=== PATIENT | male | born 1985 | race Caucasian/White ===

== ENCOUNTER 2022-05-17 12:13 | Outpatient (CLI) | payer OTHER, SELFPAY | END 2022-05-25 14:34 | disposition home or self-care (01) | LOC: PHYS 12:14 | DX: R20.2 Paresthesia of skin (principal) | CPT/HCPCS: 95885; 95886; 95912 ==

== ENCOUNTER → 2023-02-01 09:09 | Outpatient (CLI) | payer OTHER, SELFPAY ==
--- NOTE | 2023-02-01 | DI.ECHO.S_ITS ---
[facility]---------+ [facility] +---------+ : : [address] : [address] : : : : [id number] : : : : Phone: [phone]---------+ Echocardiogram Report + + :Name: RADHA BEAVERS JR Study Date: 02/01/2023 Height: 68 in : :[facility] ReadingLocation: Weight: 205 lb : : Gender: Male BSA: 2.1 m2 : :: 1985 Age: 37 yrs BP: 140/97 mmHg: :Reason For Study: Encounter for General Adult Medical : :Examination : :Ordering Physician: SHANNA ZHU : :CHASE Performed By: Cintia Green : :Referring: SHANNA ZHU CHASE : + + Interpretation Summary Normal sinus rhythm. Normal LV size, wall thickness, wall motion and LV systolic function. EF is 50-55%. Normal chamber sizes. No significant valvular abnormalities. No prior study available for comparison. Procedure: A two-dimensional transthoracic echocardiogram with color flow and Doppler was performed. The study quality was technically good. There is no prior echocardiogram noted for this patient. The patient was in normal sinus rhythm during the exam. Left Ventricle: The left ventricle is normal in size. The ejection fraction is estimated to be 50-55%. Diastolic parameters suggest probable normal left ventricular diastolic function and normal filling pressures. Right Ventricle: The right ventricle is normal in size and function. Atria: The left atrial size is normal. Right atrial size is normal. There is no Doppler evidence for an interatrial shunt. Mitral Valve: The mitral valve is normal. There is no mitral valve stenosis. There is trace mitral regurgitation. Aortic Valve: The aortic valve is trileaflet. The aortic valve opens well. There is no aortic valve stenosis. There is mild aortic regurgitation. Tricuspid Valve: The tricuspid valve is normal. There is no tricuspid stenosis. There is trace tricuspid regurgitation. The right ventricular systolic pressure is estimated to be at least 23 mmHg based on an estimated right atrial pressure of 3 mm Hg. Pulmonic Valve: The pulmonic valve is not well visualized. There is no pulmonic valvular stenosis. There is no pulmonic valvular regurgitation. Great Vessels: The aortic root is borderline dilated. The ascending aorta is at the upper limits of normal in size. The pulmonary artery is normal size. The IVC is of normal diameter and collapses greater than 50% with a sniff. This suggests a low right atrial pressure of 3 mm Hg. Pericardium/ Pleura There is no pericardial effusion. There is no pleural effusion. MMode/2D Measurements & Calculations LVIDd: 5.2 cm LVOT diam: 2.1 cm LVIDs: 3.7 cm Ao root diam: 3.8 cm FS: 28.9 % asc Aorta Diam: 3.7 cm EPSS: 1.0 cm IVSd: 0.88 cm LVPWd: 0.87 cm LV mendez. diameter/BSA (cm/m^2): 2.5 LV sys. diameter/BSA (cm/m^2): 1.8 LA A2 area: 17.1 cm2 RA long axis: 5.2 cm LA A4 area: 16.7 cm2 RA area: 15.2 cm2 LA length (vol): 5.6 cm RA vol: 37.6 ml LA vol: 43.1 ml RA : 18.2 ml/m2 LA vol index: 20.9 ml/m2 TAPSE: 1.8 cm Doppler Measurements & Calculations Ao V2 max: 141.5 cm/sec LVOT Max Philip: 88.4 cm/sec Ao V2 mean: 100.1 cm/sec LV V1 max P.1 mmHg Ao max P.0 mmHg LV V1 VTI: 18.6 cm Ao mean P.5 mmHg DWAYNE(I,D): 2.1 cm2 Ao V2 VTI: 30.4 cm DWAYNE(V,D): 2.2 cm2 sev ratio: 0.61 DWAYNE indexed to BSA (cm^2/m^2): 1.0 AI P1/2t: 798.2 msec AI dec slope: 162.7 cm/sec2 MV E max philip: 71.4 cm/sec TR max philip: 226.3 cm/sec MV A max philip: 45.8 cm/sec TR max P.5 mmHg MV E/A: 1.6 PA V2 max: 94.9 cm/sec Med Peak E' Philip: 7.3 cm/sec PA V2 mean: 70.1 cm/sec E/E' med: 9.7 PA mean P.1 mmHg Lat Peak E' Philip: 12.3 cm/sec PA pr(Accel): 40.5 mmHg E/E' lat: 5.8 E/e' average: 7.8 MV dec time: 0.18 sec SV(LVOT): 65.0 ml Electronically signed by: Samia Corrales M.D. on Reading Physician:02/02/2023 01:11 AM
--- NOTE | 2023-02-01 | DI.RAD.S_ITS ---
PROCEDURE: XR CHEST 2V INDICATIONS: Encounter for general adult medical examination TECHNIQUE: 2 views of the chest were acquired. COMPARISON: None. FINDINGS: Surgical changes and devices: None. Lungs and pleura: Lungs are clear. No pleural effusions or pneumothorax. Mediastinum: Mediastinal contours are normal. Heart size is normal. Bones and chest wall: No suspicious bony abnormalities. Soft tissues appear unremarkable. IMPRESSION: No acute cardiopulmonary abnormality is seen. Dictated by: Jaden Serna M.D. on 02/01/2023 at 10:28 Approved by: Jaden Serna M.D. on 02/01/2023 at 10:29
== END ==
PROVIDERS: Referring Provider Family Medicine; Visit Provider Family Medicine
DX: Z00.00 Encounter for general adult medical examination without abnormal findings (principal); I35.1 Nonrheumatic aortic (valve) insufficiency
CPT/HCPCS: 71046; 93306